=== PATIENT | male | born 1935 | race Caucasian/White ===

== ENCOUNTER 2017-04-02 23:50 | Emergency (ER) | payer OTHER, BC ==
[~2017-04-02] VITALS: Ht 177.8 cm; Wt 90.7 kg
[~2017-04-02 23:50] MED LIST: ACYC800T1 PO; CARV3.122 PO; GLIP5TAB13 PO; LACT10SY PO; LEVO500T6 PO; METF100028 PO; RAMI10CA PO; SERT50TA PO; SIMV40TA5 PO; TAMS0.4C96 PO; [UNRECOGNIZED DRUG - CODE] PO; [UNRECOGNIZED DRUG - CODE] PO; [UNRECOGNIZED DRUG - CODE] PO
[2017-04-02 23:58] VITALS: BP 148/88
[2017-04-03 02:53] VITALS: BP 121/67
== END 2017-04-03 02:50 | disposition home or self-care (01) ==
LOC: MED 23:50
DX: S06.0X9A Concussion with loss of consciousness of unspecified duration, initial encounter (principal); E11.9 Type 2 diabetes mellitus without complications; I10 Essential (primary) hypertension; Z95.1 Presence of aortocoronary bypass graft; W22.8XXA Striking against or struck by other objects, initial encounter; Y93.89 Activity, other specified; Y92.89 Other specified places as the place of occurrence of the external cause; Y99.8 Other external cause status; R51 Headache
CPT/HCPCS: 70450; 99284

== ENCOUNTER 2017-07-24 20:38 | Emergency (ER) | payer OTHER, BC ==
[~2017-07-24] VITALS: Ht 177.8 cm; Wt 90.7 kg
[~2017-07-24 20:38] MED LIST changes: +LACT10SO4 PO; -LACT10SY PO; +LEVO0.1T32 PO; -RAMI10CA PO; +RAMI10CA10 PO; -[UNRECOGNIZED DRUG - CODE] PO
[2017-07-24 21:01] VITALS: BP 188/117
--- NOTE | 2017-07-24 22:21 | NUR ---
Patient to bed 07.
--- NOTE | 2017-07-24 22:25 | NUR ---
PATIENT PRESENTS TO ED WITH HBP 188/117 NOW; 204/103 WHILE AT HOME POST CLONIDINE 0.1MG ; PT DENIES ANY N/V/D/, SOB, OR DIZZINESS PT DENIES N/V/D; SKIN IS PINK/WARM/DRY; AAOX4 WITH EVEN AND STEADY GAIT; LUNGS CLEAR BL; HR EVEN AND REGULAR; PT DENIES ANY FEVER, CP, SOB, OR COUGH AT THIS TIME; PATIENT STATES PAIN OF 0/10 AT THIS TIME; VSS; PATIENT POSITIONED FOR COMFORT; HOB ELEVATED; BEDRAILS UP X2; BED DOWN. ER MD MADE AWARE OF PT STATUS.
--- NOTE | 2017-07-24 23:17 | NUR ---
Patient appears to be resting comfortably in bed. Vital Signs within normal limits. Respirations even and unlabored.
--- NOTE | 2017-07-25 | NUR ---
Patient discharged with v/s stable. Written and verbal after care instructions given and explained. Patient verbalized understanding. Ambulatory with steady gait. All questions addressed prior to discharge. Advised to follow up with PMD.
[2017-07-25 00:07] VITALS: BP 149/84
== END 2017-07-25 | disposition home or self-care (01) ==
LOC: MED 20:38
DX: I10 Essential (primary) hypertension (principal); E11.9 Type 2 diabetes mellitus without complications; Z95.1 Presence of aortocoronary bypass graft
CPT/HCPCS: 99283

== ENCOUNTER 2017-08-07 22:11 | Emergency (ER) | payer OTHER, BC ==
[~2017-08-07] VITALS: Ht 177.8 cm; Wt 95.3 kg
--- NOTE | 2017-08-07 22:13 | NUR ---
81/M BIBA W C/O HIGH BLOOD PRESSURE AT HOME, PT STATES HIS READING WAS SBP 200, NO DIASTOLIC. PT TOOK 2 DOSES OF CLONIDINE 0.1MG WITHOUT RELIEF. PT REPORTS HE WAS SNEEZING BEFORE HE TOOK BP, NO OTHER ACTIVITIES REPORTED BEFORE TAKING BP. EMS REPORTS PT REMAINED ASYMPTOMATIC DURING TRANSPORT. PT DENIES CP/SOB, ANY PAIN AT THIS TIME, DENIES HEADAACHE/DIZZINESS, COUGH, FEVER, N/V/D. PMH: HTN, HLD, CABG/STEMI, NIDDM. CURRENT BS 241. PT REPORTS BEING COMPLIANT WITH RX
--- NOTE | 2017-08-07 22:13 | NUR ---
PT TAKEN TO BED 4
[2017-08-07 22:14] VITALS: BP 165/81
--- NOTE | 2017-08-07 22:18 | NUR ---
Dr. Parker evaluating patient at bedside.
[2017-08-07 23:50] VITALS: BP 141/70
== END 2017-08-07 23:50 | disposition home or self-care (01) ==
LOC: MED 22:11
DX: I10 Essential (primary) hypertension (principal); E11.9 Type 2 diabetes mellitus without complications; E78.5 Hyperlipidemia, unspecified; Z79.899 Other long term (current) drug therapy
CPT/HCPCS: 93005; 99283

== ENCOUNTER 2022-03-27 21:35 | Emergency (ER) | payer BC, OTHER ==
[~2022-03-27] VITALS: Ht 177.8 cm; Wt 72.6 kg
[~2022-03-27 21:35] MED LIST changes: +ACYC-279 PO; -ACYC800T1 PO; -LEVO0.1T32 PO; +SIMV-34 PO; -SIMV40TA5 PO; +[UNRECOGNIZED DRUG - CODE] PO; +[UNRECOGNIZED DRUG - CODE] PO; -[UNRECOGNIZED DRUG - CODE] PO
[2022-03-27 21:38] VITALS: BP 163/83
--- NOTE | 2022-03-27 21:41 | NUR ---
BIBA TAKEN TO BED #9
--- NOTE | 2022-03-27 21:52 | NUR ---
Note undone in EDM - 03/27/22 at 2152 by MED pt biba from home c/o abdominal pain that radiates to the chest started yesterday. pt admited here march 17 and discharged march 23. has 24 sandeep to the right side of the umbilicus. above the site of the incision patient has a round firm formation. has n/v. has been unable to take medications. aaox4. pain a 05/21. pmh: DM, HTN, small bowel taken out, high cholesterol, appendectomy, hernia, uterus cancer taken out on octobera
--- NOTE | 2022-03-27 21:52 | NUR ---
86 yo m biba from home with c/c of lower body numbness rad to chest started in the morning but getting worse. denies chest pain. -slurred speech able to ambulate. pt states he is anxious, took xanax 10mins ago. blood sugar 168 hx:anxiety, heart surgery, htn, heart ablasion, dm rx:dariana jorgensen
[2022-03-27 22:23] LABS: BASOPHILS % (AUTO) 0.5 % (0.0-2.0); EOSINOPHILS # (AUTO) 0.1 K/uL (0-0.4); EOSINOPHILS % (AUTO) 1.6 % (0.0-4.0); HEMATOCRIT 39.8 % (36-52); HEMOGLOBIN 13.3 g/dL (12.0-18.0); LYMPHOCYTES # (AUTO) 1.8 K/uL (2.0-11.5); LYMPHOCYTES % (AUTO) 28.6 % (20.5-51.1); MEAN CORPUSCULAR HEMOGLOBIN 31 pg (27-31); MEAN CORPUSCULAR HGB CONC 34 g/dL (33-37); MONOCYTES # (AUTO) 0.5 K/uL (0.8-1.0); MONOCYTES % (AUTO) 8.1 % (1.7-9.3); NEUTROPHILS # (AUTO) 3.8 K/uL (1.8-7.7); NEUTROPHILS % (AUTO) 61.2 % (42.2-75.2); PLATELET COUNT (AUTO) 258 K/uL (140-450); RED BLOOD CELL COUNT(AUTO) 4.32 MIL/uL (4.20-6.10); RED CELL DISTRIBUTION WIDTH 13.1 % (11.6-13.7); WHITE BLOOD COUNT (AUTO) 6.2 K/uL (4.8-10.8)
[2022-03-27 22:50] LABS: ALBUMIN 3.4 g/dL (3.4-5.0); ANION GAP 13.2 (8-16); ASPARTATE AMINOTRANSFERASE 19 U/L (15-37); CARBON DIOXIDE 24.4 mmol/L (21-32); CHLORIDE 97 mmol/L (98-107); CREATININE 2.2 mg/dL (0.6-1.3); GLUCOSE 118 mg/dL (74-106); POTASSIUM 4.6 mmol/L (3.5-5.1); SODIUM SERUM 130 mmol/L (136-145); TOTAL BILIRUBIN 0.4 mg/dL (0.0-1.0); UREA NITROGEN, BLOOD 39 mg/dL (7-18)
--- NOTE | 2022-03-27 22:52 | NUR ---
RAD AT BEDSIDE
--- NOTE | 2022-03-27 23:14 | NUR ---
PT GIVEN BLANKET
[2022-03-27 23:39] LABS: APPEARANCE,URINE CLEAR (CLEAR); BILIRUBIN,URINE NEGATIVE (NEGATIVE); BLOOD, URINE NEGATIVE (NEGATIVE); COLOR,URINE YELLOW (YELLOW); LEUKOCYTE ESTERASE ,URINE NEGATIVE (NEGATIVE); NITRITE, URINE NEGATIVE (NEGATIVE); PH,URINE 7.5 (5.0-9.0); UGLUCOSE 2+ (NEGATIVE)
--- NOTE | 2022-03-28 00:53 | NUR ---
DAVID STATED " CAN YOU LET THE DOCTOR KNOW THAT IM READY TO GO HOME. I AM URINATING FINE NOW AND HAVE NO PAIN. I DONT NEED A CATHETER PLACED." MADE AWARE.
[2022-03-28 01:01] VITALS: BP 118/62
== END 2022-03-28 01:01 | disposition home or self-care (01) ==
LOC: MED 21:35
DX: R10.30 Lower abdominal pain, unspecified (principal); R20.2 Paresthesia of skin; I25.10 Atherosclerotic heart disease of native coronary artery without angina pectoris; I10 Essential (primary) hypertension; E11.9 Type 2 diabetes mellitus without complications; E03.9 Hypothyroidism, unspecified; Z79.4 Long term (current) use of insulin; Z79.899 Other long term (current) drug therapy
CPT/HCPCS: 36415; 71045; 80053; 81003; 84484; 85025; 93005; 99285

== ENCOUNTER 2022-04-22 20:49 | Emergency (ER) | payer OTHER ==
[~2022-04-22] VITALS: Ht 165.1 cm; Wt 72.6 kg
--- NOTE | 2022-04-22 21:01 | NUR ---
PT BIBA BLS TO BED 09
[2022-04-22 21:06] VITALS: BP 131/58
--- NOTE | 2022-04-22 21:16 | NUR ---
86 YO M BIBA FROM HOME W C/O OF CHRONIC LOWER BACK PAIN DUE TO L4 L5 AND S1 FUSION. PAIN 10/10 TOOK NORCO AT HOME WITH NO RELIF. PT HAS AN INSULIN PUMP TO BACK OF RIGHT ARM. PMH: DM, HTN, CARDIAC PROBLEMS MEDS: INSULIN, NORCO B NKDA
[2022-04-22] MEDS ORDERED: HYDROmorphone PFS 2 MG/ML SYR IVP ONE (21:55)
--- NOTE | 2022-04-22 22:55 | NUR ---
PROVIDED PT WITH URINAL
--- NOTE | 2022-04-22 23:02 | NUR ---
PT WAS CALLED FROM [facility] BUT WAS NOT THERE. CALLED PHONE NUMBER TO SEE IF PATIENT WAS ON SITE - NO ANSWER
--- NOTE | 2022-04-22 23:05 | NUR ---
PT TAKEN TO CT VIA S[facility]ANTH[facility]
--- NOTE | 2022-04-22 23:28 | NUR ---
PT RETURNED FROM CT
--- NOTE | 2022-04-23 00:28 | NUR ---
Patient appears to be resting comfortably in bed. Vital Signs within normal limits. Respirations even and unlabored.
[2022-04-23] MEDS ORDERED: HYDROmorphone PFS 2 MG/ML SYR IVP ONE (00:45)
--- NOTE | 2022-04-23 00:48 | NUR ---
WASTED 1.5MG HYDROMORPHONE. PT GIVEN .25MG Addendum: 04/27/22 at 2314 by [email or web address] PT GIVEN .5MG
[2022-04-23 02:21] VITALS: BP 122/59
--- NOTE | 2022-04-23 02:23 | NUR ---
Patient discharged with v/s stable [facility] ERMD. Written and verbal after care instructions given and explained. Patient verbalized understanding. Wheel Chair Assisted with to car. All questions addressed prior to discharge. Advised to follow up with PMD.
== END 2022-04-23 00:23 | disposition home or self-care (01) ==
LOC: MED 20:49
DX: M54.9 Dorsalgia, unspecified (principal); G89.29 Other chronic pain; E11.9 Type 2 diabetes mellitus without complications; I10 Essential (primary) hypertension; E07.9 Disorder of thyroid, unspecified; Z79.899 Other long term (current) drug therapy; Z79.84 Long term (current) use of oral hypoglycemic drugs; Z95.1 Presence of aortocoronary bypass graft
CPT/HCPCS: 72131; 96374; 96376; 99284; J1170